=== PATIENT | female | born 1990 | race Caucasian/White ===

== ENCOUNTER 2021-03-18 12:02 | Emergency (ER) | payer OTHER ==
[~2021-03-18] VITALS: Ht 172.7 cm; Wt 61.5 kg
[~2021-03-18 12:02] MED LIST: IBUP-1223 PO; LEVO25TA4 PO; LEVO75TA5 PO; NPH,100V SC; OXYC1TAB14 PO; PREN1TAB60 PO; SENN-92 PO
[2021-03-18 12:35] VITALS: BP 126/84
--- NOTE | 2021-03-18 14:40 | NUR ---
Patient given discharge instructions and they have confirmed that they understand the instructions. Patient ambulatory with steady gait.
== END 2021-03-18 14:41 | disposition home or self-care (01) ==
LOC: ED 14:30
DX: U07.1 COVID-19 (principal); B34.9 Viral infection, unspecified; R07.89 Other chest pain; E03.9 Hypothyroidism, unspecified
CPT/HCPCS: 71045; 99284; U0003; U0005